=== PATIENT | male | born 1990 | race Caucasian/White ===

== ENCOUNTER 2018-07-10 18:51 | Emergency (ER) | payer SELFPAY ==
[2018-07-10] MEDS ORDERED: NORMAL SALINE 1000 ML 1,000 ML IV ONE ×2 (19:32→22:13)
[2018-07-10] MEDS ORDERED: ONDANSETRON HCL INJ/PF 4 MG/2 ML SDV IV ONE (19:33)
[2018-07-10] MEDS ORDERED: FENTANYL CITRATE INJ/PF 100 MCG/2 ML AMPUL IV ONE (19:33)
--- NOTE | 2018-07-10 19:34 | ER Document Report ---
ED Medical Screen (RME) - General Chief Complaint: Abdominal Pain Stated Complaint: ABDOMINAL PAIN Time Seen by Provider: 07/10/18 19:22 Mode of Arrival: Ambulatory Information source: Patient Notes: 27-year-old male presents emergency department with complaints of right-sided abdominal pain, nausea, vomiting, and diarrhea. Symptoms have been present for the last week. Patient states that the pain is intermittent in nature. He describes it as an aching sensation. He denies any alleviating or exacerbating factors. He went to urgent care and was told to come to the emergency department for further evaluation. I have greeted and performed a rapid initial assessment of this patient. A comprehensive ED assessment and evaluation of the patient, analysis of test results and completion of the medical decision making process will be conducted by additional ED providers. PHYSICAL EXAMINATION: GENERAL: Well-appearing, well-nourished and in no acute distress. HEAD: Atraumatic, normocephalic. EYES: Pupils equal round extraocular movements intact, conjunctiva are normal. ENT: Nares patent NECK: Normal range of motion LUNGS: No respiratory distress Musculoskeletal: Normal range of motion NEUROLOGICAL: Normal speech, normal gait. PSYCH: Normal mood, normal affect. SKIN: Warm, Dry, normal turgor, no rashes or lesions noted. TRAVEL OUTSIDE OF THE [place] IN LAST 30 DAYS: No - Related Data Allergies/Adverse Reactions: No Known Allergies Allergy (Verified 07/10/18 18:52) Past Medical History Renal/ Medical History: Denies: Hx Peritoneal Dialysis Physical Exam - Vital signs Vitals: Temp Pulse Resp BP Pulse Ox 98.4 F 131 H 20 124/93 H 97 07/10/18 19:07 07/10/18 19:07 07/10/18 19:07 07/10/18 19:07 07/10/18 19:07 Course - Vital Signs Vital signs: Temp Pulse Resp BP Pulse Ox 98.4 F 131 H 20 124/93 H 97 07/10/18 19:07 07/10/18 19:07 07/10/18 19:07 07/10/18 19:07 07/10/18 19:07
[2018-07-10 20:30] LABS: HEMATOCRIT 46.6 % (37.9-51.0); HEMOGLOBIN 16.7 g/dL (13.5-17.0); MEAN CORPUSCULAR HEMOGLOBIN 30.1 pg (27.0-33.4); MEAN CORPUSCULAR HGB CONC 35.8 g/dL (32.0-36.0); MEAN CORPUSCULAR VOLUME 84 fl (80-97); PLATELET COUNT 251 10^3/uL (150-450); RED BLOOD COUNT 5.54 10^6/uL (4.35-5.55); RED CELL DISTRIBUTION WIDTH 12.5 % (11.5-14.0); WHITE BLOOD COUNT 11.9 10^3/uL (4.0-10.5)
[2018-07-10 20:46] LABS: ALANINE AMINOTRANSFERASE 60 U/L (21-72); ALBUMIN 5.1 g/dL (3.5-5.0); ALKALINE PHOSPHATASE 91 U/L (38-126); ANION GAP 18 (5-19); ASPARTATE AMINO TRANSFERASE 64 U/L (17-59); BILIRUBIN,DIRECT 0.3 mg/dL (0.0-0.4); BILIRUBIN,TOTAL 1.1 mg/dL (0.2-1.3); BLOOD UREA NITROGEN 12 mg/dL (7-20); CALCIUM 10.3 mg/dL (8.4-10.2); CARBON DIOXIDE 22 mmol/L (22-30); CHLORIDE 105 mmol/L (98-107); GLUCOSE 117 mg/dL (75-110); POTASSIUM 4.4 mmol/L (3.6-5.0); SODIUM 144.6 mmol/L (137-145); TOTAL PROTEIN 9.1 g/dL (6.3-8.2)
[2018-07-10 20:47] LABS: ABSOLUTE MONOCYTES # (MANUAL) 0.2 10^3/uL (0.1-1.4); ABSOLUTE NEUTROPHILS# (MANUAL) 10.7 10^3/uL (1.7-8.2); BASOPHILS % (MANUAL) 0 % (0-2); EOSINOPHILS % (MANUAL) 0 % (0-6); LYMPHOCYTES % (MANUAL) 8 % (13-45); MONOCYTES % (MANUAL) 2 % (3-13); SEGMENTED NEUTROPHILS % (MAN) 90 % (42-78); TOTAL CELLS COUNTED 100
[2018-07-10 20:48] LABS: PLATELET COMMENT ADEQUATE; RBC MORPHOLOGY COMMENT NORMO-CYTIC/CHROMIC
[2018-07-10 20:53] LABS: APPEARANCE,URINE CLEAR; BILIRUBIN,URINE NEGATIVE (NEGATIVE); COLOR,URINE YELLOW; GLUCOSE, URINE NEGATIVE (NEGATIVE); KETONES,URINE NEGATIVE (NEGATIVE); LEUKOCYTE ESTERASE,URINE NEGATIVE (NEGATIVE); NITRITE,URINE NEGATIVE (NEGATIVE); PROTEIN,URINE 30 mg/dL (NEGATIVE); URINE SPECIFIC GRAVITY 1.025; UROBILINOGEN,URINE NEGATIVE mg/dL (<2.0)
[2018-07-10] MEDS ORDERED: LORAZEPAM INJ 2 MG/1 ML VIAL IV ONE (22:13)
--- NOTE | 2018-07-10 22:59 | RADIOLOGY REPORT (SQ) ---
EXAM DESCRIPTION: CT ABDOMEN PELVIS WITH IV CONTRAST COMPLETED DATE/TME: 07/10/2018 22:12 CLINICAL HISTORY: 27 years, Male, right sided abdominal pain COMPARISON: None. TECHNIQUE: 506 Images stored on PACS. All CT scanners at this facility use dose modulation, iterative reconstruction, and/or weight based dosing when appropriate to reduce radiation dose to as low as reasonably achievable (ALARA). [facility]: Dose Right [facility]: CareDose [facility]: Dose Right [facility]: Teradose 4D [facility]: [employer] LIMITATIONS: None. FINDINGS: Limited evaluation of the lung bases is unremarkable. Osseous structures are grossly intact. Fatty infiltrative change to the liver. Gynecomastia partially visualized. The spleen is enlarged, measuring 15.5 cm. The adrenal glands, pancreas, and kidneys are unremarkable. The gallbladder is present. No gross evidence for bowel obstruction. Abundant stool in the colon. Normal appendix. No free air or free fluid. Fat-containing right inguinal hernia. IMPRESSION: Fatty infiltrative change to the liver. Splenomegaly at 15.5 cm. TECHNICAL DOCUMENTATION: Quality ID # [id number]: Final reports with documentation of one or more dose reduction techniques (e.g., Automated exposure control, adjustment of the mA and/or kV according to patient size, use of iterative reconstruction technique) 2010 [employer]- All Rights Reserved
[2018-07-10] MEDS ORDERED: ONDANSETRON ODT 4 MG TAB (6 TAB/ER DISP) PO PRN (23:46)
--- NOTE | 2018-07-10 23:47 | ER Document Report ---
ED General - General Chief Complaint: Abdominal Pain Stated Complaint: ABDOMINAL PAIN Time Seen by Provider: 07/10/18 19:22 Mode of Arrival: Ambulatory TRAVEL OUTSIDE OF THE [place] IN LAST 30 DAYS: No - Related Data Allergies/Adverse Reactions: No Known Allergies Allergy (Verified 07/10/18 18:52) Past Medical History - General Information source: Patient - Social History Smoking Status: Never Smoker Family History: Reviewed & Not Pertinent Patient has suicidal ideation: No Patient has homicidal ideation: No Renal/ Medical History: Denies: Hx Peritoneal Dialysis Physical Exam - Vital signs Vitals: Temp Pulse Resp BP Pulse Ox 98.4 F 131 H 20 124/93 H 97 07/10/18 19:07 07/10/18 19:07 07/10/18 19:07 07/10/18 19:07 07/10/18 19:07 Course - Re-evaluation Re-evalutation: 07/11/18 00:03 On reevaluation patient is feeling much improved. He has had no further vomiting. His heart rate still a little bit fast on auscultation however it is much improved from where he was in triage. Patient is mother both continue to be informed that his heart rate is always very fast when he comes to the doctor. He has high anxiety and he feels very anxious when he is at a doctor's office his heart rate will always run very high. He says his pain is improving. His nausea is gone. He looks well. Currently his workup looking at his gallbladder is negative however informed him that this does not mean that he does not have a dysfunctional gallbladder. Informed him he still needs to follow-up closely with the general surgery clinic for reevaluation as he may have a dysfunctional gallbladder. I informed him if he still has any pain or recurrent vomiting next 24 hours he must return to ER for close reevaluation. Patient and mother agree with plan and patient will be discharged home. I talked him at length about the need to avoid fatty foods, fried foods, and spicy foods. Dictation of this chart was performed using voice recognition software; therefore, there may be some unintended grammatical errors. 07/11/18 00:04 - Vital Signs Vital signs: Temp Pulse Resp BP Pulse Ox 98.4 F 131 H 20 124/93 H 97 07/10/18 19:07 07/10/18 19:07 07/10/18 19:07 07/10/18 19:07 07/10/18 19:07 - Laboratory Result Diagrams: 07/10/18 20:03 07/10/18 20:03 Laboratory results interpreted by me: 07/10/18 07/10/18 07/10/18 20:03 20:03 20:03 WBC 11.9 H Seg Neuts % (Manual) 90 H Lymphocytes % (Manual) 8 L Monocytes % (Manual) 2 L Abs Neuts (Manual) 10.7 H Glucose 117 H Calcium 10.3 H AST 64 H Total Protein 9.1 H Albumin 5.1 H Urine Protein 30 H Discharge - Discharge Clinical Impression: Abdominal pain Qualifiers: Abdominal location: right upper quadrant Qualified Code(s): R10.11 - Right upper quadrant pain Diarrhea Qualifiers: Diarrhea type: unspecified type Qualified Code(s): R19.7 - Diarrhea, unspecified Vomiting Qualifiers: Vomiting type: unspecified Vomiting Intractability: non-intractable Nausea presence: with nausea Qualified Code(s): R11.2 - Nausea with vomiting, unspecified Condition: Good Disposition: HOME, SELF-CARE Additional Instructions: Please take the medication as prescribed. Please eat a very bland diet over the next 24 hours. Please return to the ER immediately if you have intractable vomiting, fevers, or bloody diarrhea. Please return to the ER in 24 hours for reevaluation if you are still having any pain in your abdomen or recurrent vomiting. As discussed with you, your workup looking at your gallbladder tonight was negative. This does not mean 100% that your gallbladder cannot be causing your symptoms. You can still have a gallbladder that is dysfunctional or spasms. You therefore must avoid fatty foods fried foods and spicy foods. Please call Dr. Lua, general surgeon, to make a follow-up appointment for reevaluation. Prescriptions: Ondansetron [Zofran Odt 4 mg Tablet] 1 tab PO Q4H PRN #15 tab.rapdis PRN Reason: For Nausea/Vomiting Forms: Return to Work Referrals: DILLAN ORTIZ MD [Primary Care Provider] - 07/14/18 DERECK LUA MD [ACTIVE STAFF] - Follow up in 3-5 days (call office in the am to make an appointment)
[2018-07-11 00:20] VITALS: BP 135/74
== END 2018-07-11 00:31 | disposition home or self-care (01) ==
LOC: ER 18:51
DX: R10.11 Right upper quadrant pain (principal); R19.7 Diarrhea, unspecified; R11.2 Nausea with vomiting, unspecified; F41.9 Anxiety disorder, unspecified
CPT/HCPCS: 99284; 96361; 96374; 96375; 36415; 85025; 80053; 81001; 74177; J3010; J2060; J2405; J7030